=== PATIENT | male | born 1975 | race Two or more races ===

== ENCOUNTER 2018-11-29 10:39 | Emergency (ER) | payer OTHER ==
[2018-11-29 10:51] VITALS: BP 133/63; PULSE 79; TEMP 98.2; BMI 26.3
[2018-11-29] MEDS ORDERED: KETOROLAC TROMETHAMINE 60 MG/2 ML VIAL IM ONE (11:43)
--- NOTE | 2018-11-29 11:45 | PDOC ---
History of Present Illness - General Chief Complaint: Back Pain Stated Complaint: LOWER BACK PAIN Time Seen by Provider: 11/29/18 11:13 History Source: Patient Exam Limitations: No Limitations Past History - Travel Traveled outside of the country in the last 30 days: No Close contact w/someone who was outside of country & ill: No - Past Medical History Allergies/Adverse Reactions: Allergies Allergy/AdvReac Type Severity Reaction Status Date / Time No Known Allergies Allergy Verified 11/29/18 10:47 Home Medications: Ambulatory Orders Cyclobenzaprine HCl [Flexeril -] 10 mg PO HS #10 tablet 11/29/18 Ibuprofen 600 mg PO Q6H #30 tablet 11/29/18 COPD: No Other medical history: HERNIATED DISC TO L-SPINE - Immunization History Immunization Up to Date: Yes - Suicide/Smoking/Psychosocial Hx Smoking History: Never smoked Have you smoked in the past 12 months: No Information on smoking cessation initiated: No Hx Alcohol Use: No Drug/Substance Use Hx: No Review of Systems - Review of Systems Able to Perform ROS?: Yes Comments:: 11/29/18 11:40 CONSTITUTIONAL: Absent: fever, chills, diaphoresis, generalized weakness, malaise, loss of appetite GASTROINTESTINAL: Absent: abdominal pain, abdominal distension, nausea, vomiting, diarrhea, constipation, melena, hematochezia GENITOURINARY: Absent: dysuria, frequency, urgency, hesitancy, hematuria, flank pain, genital pain MUSCULOSKELETAL: Present: low back pain Absent: arthralgia, joint swelling SKIN: Absent: rash, itching, pallor NEUROLOGIC: Absent: headache, focal weakness or paresthesias, dizziness, unsteady gait, seizure, mental status changes, bladder or bowel incontinence PSYCHIATRIC: Absent: anxiety, depression, suicidal or homicidal ideation, hallucinations. Is the patient limited Maur[place]ian proficient: No *Physical Exam - Vital Signs Last Vital Signs Temp Pulse Resp BP Pulse Ox 98.2 F 79 17 133/63 99 11/29/18 10:48 11/29/18 10:48 11/29/18 10:48 11/29/18 10:48 11/29/18 10:48 - Physical Exam Comments: 11/29/18 11:40 GENERAL: Well developed, well nourished. Awake and alert. No acute distress. HEENT: Normocephalic, atraumatic. PERRLA, EOMI. No conjunctival pallor. Sclera are non- icteric. Moist mucous membranes. Oropharynx is clear. NECK: Supple. Full ROM. No JVD. Carotid pulses 2+ and symmetric, without bruits. No thyromegaly. No lymphadenopathy. MUSCULOSKELETAL TTP of the Midline spine at L4-L5 with palpable muscle spasm b/l. (-) straight leg raise. Normal range of motion at all joints. No bony deformities or tenderness. No CVA tenderness. EXTREMITIES: No cyanosis. No clubbing. No edema. No calf tenderness. SKIN: Warm and dry. Normal capillary refill. No rashes. No jaundice. NEUROLOGICAL: Alert, awake, appropriate. Cranial nerves 2-12 intact. No deficits to light touch and temperature in face, upper extremities and lower extremities. No motor deficits in the in face, upper extremities and lower extremities. Normoreflexic in the upper and lower extremities. Normal speech. Toes are down- going bilaterally. Gait is normal without ataxia. PSYCHIATRIC: Cooperative. Good eye contact. Appropriate mood and affect. Medical Decision Making - Medical Decision Making 11/29/18 11:41 The patient is a 43-year-old male with past medical history of herniated disks, presents to the ER today with increasing low back pain. He states that he recently had an MRI done which shows 2 bulging disks. They gave him Tylenol for the pain and sent him home. He has follow-up with the [facility] on December 14 of this year. He states that today the pain has gotten worse and he is requesting something different for pain. Denies fevers, chills , trauma, fall, numbness and tingling to the extremities and weakness to the extremities, saddle anesthesia and bladder bowel incontinence. A/P: Low back pain -Pt with TTP of the Midline spine at L4-L5 with palpable muscle spasm b/l. (-) straight leg raise. -No trauma, or fever. No saddle anesthesia or bladder/bowel incontinence. No CVA tenderness. -Pt is neurologically intact on exam with no focal findings. -Toradol given with relief of symptoms -DC home. Pt to f/u with her PCP. Ortho referral given. -I discussed the physical exam findings, ancillary test results and final diagnoses with the patient. I answered all of the patient's questions. The patient was satisfied with the care received and felt comfortable with the discharge plan and treatment plan. The Patient agrees to follow up with the primary care physician/specialist within 24-72 hours. Return precautions were given. *DC/Admit/Observation/Transfer Diagnosis at time of Disposition: Back pain Qualifiers: Back pain location: low back pain Chronicity: acute Back pain laterality: midline Sciatica presence: without sciatica Qualified Code(s): M54.5 - Low back pain - Discharge Dispostion Disposition: HOME Condition at time of disposition: Stable Decision to Admit order: No - Referrals Referrals: Dolores Pichardo MD [Primary Care Provider] - - Patient Instructions Printed Discharge Instructions: DI for Low Back Pain Additional Instructions: You were evaluated for your low back pain today. It is most likely due to a muscle spasm Please take the Motrin as directed Take the Flexiril every 8 hours the first day. Then take the medication at night only. Do not drink or drive after taking this medication as it may make you drowsy. You may apply warm compresses to the area. Please follow up with [facility] as previously arranged. Follow up with your primary care doctor in 1-2 days if your pain has not improved. Return to the ER for worsening pain despite treatment, numbness/weakness down the extremities, changes in the way you walk, numbness/tingling to the groin, if you have bladder/bowel incontinence, or if you have any changes in your symptoms. - Post Discharge Activity Forms/Work/School Notes: Back to Work
[2018-11-29] MEDS ORDERED: KETOROLAC TROMETHAMINE 60 MG/2 ML VIAL ONE (11:47)
== END 2018-11-29 11:45 | disposition home or self-care (01) ==
LOC: JERFT 10:39
PROC: 3E0233Z Introduction of Anti-inflammatory into Muscle, Percutaneous Approach (ICD-10-PCS; principal; 2018-11-29)
DX: M62.830 Muscle spasm of back (principal); M54.5 Low back pain
CPT/HCPCS: 99281-25

== ENCOUNTER 2019-12-04 05:01 | Emergency (ER) | payer OTHER ==
[2019-12-04 05:29] VITALS: BP 125/86; PULSE 75; TEMP 98.2; BMI 26.9
[2019-12-04] MEDS ORDERED: ACETAMINOPHEN 500 MG TABLET (FP) PO ONE (05:35)
[2019-12-04] MEDS ORDERED: ACETAMINOPHEN 325 MG TABLET (FP) ONE (05:48)
--- NOTE | 2019-12-04 05:54 | PDOC ---
History of Present Illness - General Chief Complaint: Headache Stated Complaint: HEADACHE/CHEST DISCOMFORT Time Seen by Provider: 12/04/19 05:25 History Source: Patient - History of Present Illness Initial Comments: 12/04/19 05:51 44-year-old male reports that he was having an argument with his 1 hour prior to arrival shortly after the argument he has developed of frontal headache with chest discomfort. Denies nausea, vomiting, diarrhea, weakness, abdominal pain. Denies vision loss or vision changes.Denies trauma or injury or fall 12/04/19 05:52 Past History - Medical History Allergies/Adverse Reactions: Allergies Allergy/AdvReac Type Severity Reaction Status Date / Time No Known Allergies Allergy Verified 12/04/19 05:29 Home Medications: Ambulatory Orders Cyclobenzaprine HCl [Flexeril -] 10 mg PO HS #10 tablet 11/29/18 Ibuprofen 600 mg PO Q6H #30 tablet 11/29/18 COPD: No - Immunization History Immunization Up to Date: Yes - Psycho-Social/Smoking History Smoking History: Never smoked Have you smoked in the past 12 months: No - Substance Abuse Hx (Audit-C & DAST Scrn) How often the patient has a drink containing alcohol: Monthly or less Number of drinks the patient has on a typical day: 1 or 2 How often the patient has six or more drinks on one occasion: Never Score: In Men: 4 or > Positive; In Women: 3 or > Positive: 1 Screen Result (Pos requires Nsg. Audit-10AR): Negative In the last yr the pt used illegal drug/Rx for NonMed reason: No Score: Yes response is considered Positive: 0 Screen Result (Positive result requires Nsg. DAST-10): Negative *Physical Exam - Vital Signs Last Vital Signs Temp Pulse Resp BP Pulse Ox 98.2 F 75 17 125/86 99 12/04/19 05:25 12/04/19 05:25 12/04/19 05:25 12/04/19 05:25 12/04/19 05:25 - Physical Exam General Appearance: Yes: Appropriately Dressed HEENT: positive: Normal ENT Inspection Respiratory/Chest: positive: Lungs Clear, Normal Breath Sounds Cardiovascular: positive: Regular Rhythm, Regular Rate Musculoskeletal: positive: Normal Inspection Extremity: positive: Normal Capillary Refill, Normal Inspection, Normal Range of Motion Integumentary: positive: Normal Color, Dry, Warm Neurologic: positive: worldwide chief creative officer II-XII NML intact, Fully Oriented, Alert, Normal Mood/Affect, Normal Response, Motor Strength 5/5 Heart Score/ECG Review - ECG Intrepretation Rhythm: Regular Rhythm Comment:: 12/04/19 05:52 63bpm Medical Decision Making - Medical Decision Making 12/04/19 06:18 A: tension headache P: tylenol ekg Discharge - Discharge Information Problems reviewed: Yes Clinical Impression/Diagnosis: Feeling of chest tightness Headache Qualifiers: Headache type: tension-type Headache chronicity pattern: unspecified pattern Intractability: not intractable Qualified Code(s): G44.209 - Tension-type headache, unspecified, not intractable Condition: Fair Disposition: HOME - Follow up/Referral Referrals: Dolores Pichardo MD [Primary Care Provider] - Call tomorrow - Patient Discharge Instructions Patient Printed Discharge Instructions: Tension Headache Additional Instructions: Avoid stressful situations. You may take Tylenol every 6 hours as needed for pain. you are drinking lots of fluids Return to the emergency room for any worsening symptoms - Post Discharge Activity Work/Back to School Note: Back to Work
--- NOTE | 2019-12-04 09:09 | EKG ---
Test Reason : Blood Pressure : / mmHG Vent. Rate : 063 BPM Atrial Rate : 063 BPM P-R Int : 164 ms QRS Dur : 080 ms QT Int : 392 ms P-R-T Axes : 005 061 005 degrees QTc Int : 401 ms NORMAL SINUS RHYTHM LEFT VENTRICULAR HYPERTROPHY NONSPECIFIC ST ABNORMALITY ABNORMAL ECG Confirmed by MD TAMIR, RENARD ([id number]) on 12/04/2019 9:09:08 AM Referred By: Confirmed By:RENARD GARNETT MD
== END 2019-12-04 06:35 | disposition home or self-care (01) ==
LOC: JER 05:01
DX: R07.89 Other chest pain (principal); G44.209 Tension-type headache, unspecified, not intractable
CPT/HCPCS: 93005; 93010; 99283-25

== ENCOUNTER 2020-03-16 19:32 | Emergency (ER) | payer OTHER ==
[2020-03-16 19:46] VITALS: BP 123/80; PULSE 84; TEMP 97.9; BMI 26.6
== END 2020-03-16 21:47 | disposition home or self-care (01) ==
LOC: JERFT 19:32
DX: M25.539 Pain in unspecified wrist (principal)
CPT/HCPCS: 73110-TC-RT-FY; 99283-25

== ENCOUNTER 2020-06-21 21:25 | Emergency (ER) | payer OTHER ==
[2020-06-21 21:31] VITALS: BP 121/68; PULSE 71; TEMP 98.2; BMI 26.6
[2020-06-21] MEDS ORDERED: CYCLOBENZAPRINE HCL 10 MG TABLET (FP) ONE (22:29)
[2020-06-21] MEDS ORDERED: KETOROLAC TROMETHAMINE 30 MG/1 ML VIAL ONE ×2 (22:29→22:32)
[2020-06-21] MEDS ORDERED: KETOROLAC TROMETHAMINE 30 MG/1 ML VIAL IM ONE (22:31)
[2020-06-21] MEDS: KETOROLAC TROMETHAMINE 30 MG/1 ML VIAL IVPUSH ONE ×2 (22:42→22:45)
[2020-06-21] MEDS ORDERED: CYCLOBENZAPRINE HCL 10 MG TABLET (FP) PO ONE (23:00)
[2020-06-22] MEDS ORDERED: CYCLOBENZAPRINE HCL 5 MG TABLET PO ONE (22:26)
== END 2020-06-21 23:13 | disposition home or self-care (01) ==
LOC: JER 21:25
PROC: 3E0233Z Introduction of Anti-inflammatory into Muscle, Percutaneous Approach (ICD-10-PCS; principal; 2020-06-21)
DX: M54.5 Low back pain (principal)
CPT/HCPCS: 99284-25

== ENCOUNTER 2021-01-04 08:13 | Emergency (ER) | payer OTHER ==
[2021-01-04 08:19] VITALS: BP 106/64; PULSE 70; TEMP 98.1; BMI 26.4
[2021-01-04] MEDS ORDERED: KETOROLAC TROMETHAMINE 60 MG/2 ML VIAL IM ONE (08:57)
[2021-01-04] MEDS ORDERED: KETOROLAC TROMETHAMINE 60 MG/2 ML VIAL ONE ×2 (09:00→09:03)
== END 2021-01-04 10:00 | disposition home or self-care (01) ==
LOC: JER 08:13
PROC: 3E0233Z Introduction of Anti-inflammatory into Muscle, Percutaneous Approach (ICD-10-PCS; principal; 2021-01-04)
DX: M54.50 Low back pain, unspecified (principal)
CPT/HCPCS: 99284-25

== ENCOUNTER 2021-10-13 20:44 | Emergency (ER) | payer OTHER ==
[2021-10-13 20:59] VITALS: BP 111/75; PULSE 101; TEMP 99.7; BMI 25.0
[2021-10-14] MEDS ORDERED: KETOROLAC TROMETHAMINE 60 MG/2 ML VIAL IM ONE (00:12)
[2021-10-14] MEDS ORDERED: KETOROLAC TROMETHAMINE 60 MG/2 ML VIAL ONE (00:16)
== END 2021-10-14 01:03 | disposition home or self-care (01) ==
LOC: JER 20:44
PROC: 3E023GC Introduction of Other Therapeutic Substance into Muscle, Percutaneous Approach (ICD-10-PCS; principal; 2021-10-13)
DX: U07.1 COVID-19 (principal)
CPT/HCPCS: 0241U-QW; 71045-TC-FY; 71046-TC-FY; 93005; 93010; 99285-25